=== PATIENT | male | born 1985 | race Caucasian/White ===

== ENCOUNTER 2021-08-14 02:53 | Emergency (ER) | payer OTHER, SELFPAY ==
[2021-08-14 02:54] VITALS: PULSE 128; RESP 20; TEMP 36.1; O2SAT 94; BMI 25.8
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
[2021-08-14 03:08] VITALS: BP 117/86; PULSE 120; RESP 20; O2SAT 95
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
[2021-08-14] MEDS: iohexol 300 mg/mL 100 mL Btl IV (03:37)
[2021-08-14 03:59] LABS: Basophils # 0.1 10^3/uL (0.0-0.1); Basophils % 0.4 %; Eosinophils # 0.1 10^3/uL (0.0-0.8); Eosinophils % 0.2 %; Hematocrit 51.6 % (42.0-52.0); Hemoglobin 17.4 g/dL (11.7-16.6); Lymphocytes # 1.9 10^3/uL (0.8-4.8); Lymphocytes % 8.6 %; Mean Corpuscular HGB Conc 33.7 g/dL (30.0-36.0); Mean Corpuscular Hemoglobin 31.2 pg (28.0-34.0); Mean Corpuscular Volume 92.5 fl (80-94); Mean Platelet Volume 10.4 fL (7.4-10.4); Monocytes # 1.6 10^3/uL (0.2-0.9); Monocytes % 6.9 %; Neutrophils # 18.66 10^3/uL (1.8-7.7); Neutrophils % 82.6 %; Nucleated Red Blood Cells % 0 %; Platelet Count 299 10^3/cmm (130-400); Red Blood Count 5.58 10^6/uL (4.1-5.3); Red Cell Distribution Width 13.6 % (12.1-15.1); White Blood Count 22.6 10^3/uL (4.0-10.0)
[2021-08-14 04:02] VITALS: RESP 16
[2021-08-14] MEDS: HYDROmorphone 1 mg/mL INJ 1 mL IVP (04:02)
[2021-08-14] MEDS: ondansetron 2 mg/ML SDV 2 mL 4 MG IVP (04:02)
[2021-08-14] MEDS: sodium chloride 0.9% 1,000 ML 999 ML IV (04:02)
[2021-08-14] MEDS: tetanus-dipt-pertussis 0.5 mL SDV IM (04:24)
[2021-08-14 04:31] LABS: Alanine Aminotransferase 40 U/L (0-41); Albumin Level 4.6 g/dL (3.5-5.2); Alcohol Level 236 mg/dL (0-10); Alkaline Phosphatase 98 IU/L (40-130); Anion Gap 23.6 (5-19); Aspartate Amino Transferase 85 U/L (0-40); Blood Urea Nitrogen 5 mg/dL (6-20); Calcium 8.7 mg/dL (8.5-10.5); Carbon Dioxide 20 mmol/L (22-29); Chloride 106 mmol/L (98-107); Creatinine Clr Calc Pharmacy 119.0408; Globulin 3.4 g/dL (1.3-4.6); Glomerular Filtration Rate 95.5 mL/min (90-130); Glucose 128 mg/dL (65-115); Osmolality Calculated 301 mOsm/kg (285-295); Potassium 3.6 mmol/L (3.5-5.1); Sodium 146 mmol/L (136-145); Total Bilirubin 0.3 mg/dL (0.15-1.2)
--- NOTE | 2021-08-14 04:31 | PC.NURSE ---
Posterior long splint applied to L arm. Nonadherent dressing and bandage applied to L knee.
[2021-08-14 04:53] VITALS: BP 111/70; PULSE 119; RESP 16; TEMP 36.1; O2SAT 97
[2021-08-14 05:45] VITALS: BP 111/70; PULSE 119; RESP 16; TEMP 36.7; O2SAT 97
== END 2021-08-14 05:01 | disposition short-term general hospital (02) ==
PROVIDERS: Emergency Provider Emergency Medicine
DX: I60.9 Nontraumatic subarachnoid hemorrhage, unspecified (principal); F10.129 Alcohol abuse with intoxication, unspecified; S52.032A Displaced fracture of olecranon process with intraarticular extension of left ulna, initial encounter for closed fracture; V49.9XXA Car occupant (driver) (passenger) injured in unspecified traffic accident, initial encounter; S81.012A Laceration without foreign body, left knee, initial encounter; Y90.7 Blood alcohol level of 200-239 mg/100 ml
CPT/HCPCS: 29105; 70450; 70486; 71260; 72125; 73030; 73080; 73562; 74177; 80053; 80307; 85025; 90471; 90715; 96365; 96375; 99285; J0690; J1170; J2405; J7030; Q9967

== ENCOUNTER 2021-08-22 15:19 | Outpatient (CLI) | payer OTHER, SELFPAY ==
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
--- NOTE | 2021-08-22 15:22 | CT_ITS ---
WS: [id number] CT HEAD TECHNIQUE: Noncontrast CT of the head obtained from the skullbase to the vertex. CLINICAL INFORMATION: Subarachnoid hemorrhage, acute nose bleeds COMPARISON: CT August 14, 2021 DLP: 1262.[address] scans at [facility] use at least one of these dose optimization techniques: automated e xposure control; mA and/or kV adjustment per patient size (includes targeted exams where dose is matc hed to clinical indication); or iterative reconstruction. FINDINGS: No evidence of intracranial hemorrhage or mass effect. Previously described subarachnoid hemorrhage h as resolved. No new or progressed hemorrhage. Ventricular system and basal cisterns are patent. No ex tra-axial fluid collections. No evidence of mass or mass effect. Normal blake-white differentiation. Paranasal sinuses and mastoid air cells are well aerated. .Normal visualized soft tissues. CT/CT head wo con* [id number] IMPRESSION: 1. No evidence of intracranial hemorrhage or mass effect. 2. Previously described right frontoparietal and temporal subarachnoid hemorrh age has resolved. 3. Normal blake-white differentiation. 4. No acute intracranial findings.
== END 2021-08-22 15:20 | disposition home or self-care (01) ==
PROVIDERS: Visit Provider Family Medicine
DX: I60.9 Nontraumatic subarachnoid hemorrhage, unspecified (principal); R04.0 Epistaxis
CPT/HCPCS: 70450; 70486

== ENCOUNTER 2021-12-29 06:00 | Outpatient (RCR) | payer OTHER, SELFPAY | END 2022-01-13 23:59 | disposition home or self-care (01) | LOC: SPT 06:00 | PROVIDERS: PCP Family Medicine; Referring Provider Family Medicine; Visit Provider Family Medicine | DX: M25.562 Pain in left knee (principal) | CPT/HCPCS: 97110; 97161 ==

== ENCOUNTER 2022-01-14 06:00 | Outpatient (RCR) | payer OTHER, SELFPAY | END 2022-02-13 23:59 | disposition home or self-care (01) | LOC: SPT 06:00 | PROVIDERS: PCP Family Medicine; Referring Provider Family Medicine; Visit Provider Family Medicine | DX: M25.562 Pain in left knee (principal) | CPT/HCPCS: 97110 ==

== ENCOUNTER → 2023-01-02 08:32 | Outpatient (BNVA) | payer OTHER, SELFPAY | PROVIDERS: PCP Family Medicine; Visit Provider Family Medicine | DX: F33.1 Major depressive disorder, recurrent, moderate (principal); F41.1 Generalized anxiety disorder | CPT/HCPCS: 80053; 80061; 84403; 84443; 85025 ==